=== PATIENT | female | born 1995 | race Caucasian/White ===

== ENCOUNTER 2020-03-06 08:56 | Emergency (ER) | payer SELFPAY ==
[2020-03-06] MEDS ORDERED: Diphtheria,Pertussis(Acell),Tetanus Vaccine 0.5 ML Syringe IM ONE (09:23)
[2020-03-06] MEDS ORDERED: Lidocaine/EPINEPHrine/Tetracaine Soln 1 ML TOP ONE (09:23)
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
--- NOTE | 2020-03-06 10:03 | CT ---
Head CT Technique: Multiple axial sections through the brain were obtained. Intravenous contrast was not utilized. Comparison: No prior intracranial imaging is available. Findings: Ventricles along with basal cisterns and sulci over the convexities are within normal limits for the patient's age. No abnormal parenchymal densities are seen. No evidence of intracranial hemorrhage. No midline shift or mass-effect is seen. Bone window settings were reviewed. Visualized mastoid sinuses and visualized paranasal sinuses show nothing acute. No acute calvarial abnormality is appreciated. Impression: 1. Nothing acute is appreciated on noncontrast head CT exam. Diagnostic code #1 This report was dictated in MDT
== END 2020-03-06 10:42 | disposition home or self-care (01) ==
LOC: JD.ED 08:56
DX: S01.01XA Laceration without foreign body of scalp, initial encounter (principal); Z23 Encounter for immunization; Y04.0XXA Assault by unarmed brawl or fight, initial encounter
CPT/HCPCS: 70450; 70450-26; 90471; 90715; 99283-25

== ENCOUNTER 2024-11-26 00:04 | Emergency (ER) | payer SELFPAY ==
[2024-11-26] MEDS: Lidocaine 1% 10 ML MDV INJECT ONE (01:01)
[2024-11-26] MEDS: Lidocaine/Epineph/Tetracaine 3 ML Syringe TOP ONE (01:01)
[2024-11-26] MEDS: Acetaminophen/HYDROcodone 325-5 MG Tab PO ONE (01:02)
== END 2024-11-26 01:43 | disposition home or self-care (01) ==
LOC: JD.ED 00:04
DX: S06.0X0A Concussion without loss of consciousness, initial encounter (principal); S01.01XA Laceration without foreign body of scalp, initial encounter; S16.1XXA Strain of muscle, fascia and tendon at neck level, initial encounter; W00.0XXA Fall on same level due to ice and snow, initial encounter; Y93.89 Activity, other specified
CPT/HCPCS: 12001; 70450; 72125; 99283; A9270; 99284; J3490